=== PATIENT | female | born 1990 | race American Indian/Alaskan Native ===

== ENCOUNTER 2020-03-10 06:07 | Day surgery (SDC) | payer MEDICAID ==
--- NOTE | 2020-03-09 13:25 | History and Physical Report ---
History of Present Illness Date of examination: 03/09/20 History of present illness: 29 yo is s/p 2 months and but was having heavy VB and U/S in the office suspicious for a 2x3cm area of retained POCs. Her VB however in the last 1-2 days has stopped. No fever. Past History Past Medical History: seizure, other (depression, kidney stones) Past Surgical History: no surgical history Review of Systems All systems: negative (except HPI) - Vital Signs Vital signs: see EMR charting - Physical Exam Cardiovascular: Regular rate Lungs: Positive: Clear to auscultation, Normal air movement Genitourinary (Female): Positive: other (pelvic exam deferred to the OR) Results All other labs normal. Assessment and Plan - Patient Problems (1) Retained prod concept-unsp Status: Acute Plan to address problem: Case d/w pt. Will get an U/S in preop holding since her VB just stopped. IF retained POCs still noted, will proceed with D&C. IF U/S is WNL, will cancel the case.
--- NOTE | 2020-03-10 07:26 | Ultrasound Report ---
ULTRASOUND PELVIS, limited INDICATION / CLINICAL INFORMATION: Patient is 2 months with continued bleeding up until earlier this week. TECHNIQUE: Transabdominal. Duplex Color Doppler used: Yes. COMPARISON: None available FINDINGS: Imaging of the uterus was performed. UTERUS: The uterus measures 7.4 cm in length. The endometrial stripe measures 2 mm. No abnormal Doppl er signal was seen within the uterus. No retained products of gestation are seen. The ovaries were not imaged. No free fluid is seen. IMPRESSION: 1. No retained products of gestation are seen. The uterus is unremarkable. Signer Name: Lb Blackwood MD Signed: 03/10/2020 7:22 AM Workstation Name: [id number]
[2020-03-10] MEDS ORDERED: LIDOCAINE MPF (2%) 20 MG/1 ML VIAL 5 ML ONE (07:32)
[2020-03-10] MEDS ORDERED: propofoL 200 MG/20 ML VIAL IV ONE (07:33)
[2020-03-10] MEDS ORDERED: fentaNYL 100 MCG/2 ML INJ ONE (07:33)
== END 2020-03-10 06:08 | disposition home or self-care (01) ==
LOC: OR 06:07
PROVIDERS: ATTEND Obstetrics & Gynecology
DX: O73.1 Retained portions of placenta and membranes, without hemorrhage (principal); Z53.8 Procedure and treatment not carried out for other reasons; F32.9 Major depressive disorder, single episode, unspecified; Z87.442 Personal history of urinary calculi
CPT/HCPCS: 76857; J2704; J3010